=== PATIENT | female | born 1965 | race Caucasian/White ===

== ENCOUNTER → 2024-06-10 13:17 | Outpatient (CLI) | payer OTHER, SELFPAY ==
--- NOTE | 2024-06-10 13:18 | DI.MG.S_ITS ---
BILATERAL DIGITAL SCREENING MAMMOGRAM 3D/2D WITH CAD: 06/10/2024 CLINICAL: Routine screening. Family history of breast cancer. No prior exams were available for comparison. The breasts are extremely dense, which lowers the sensitivity of mammography (category d />75% glandular tissue). Current study was also evaluated with a Computer Aided Detection (CAD) system. There is an oval focal asymmetry in the right breast at 8 o'clock posterior depth. No other significant masses, calcifications, or other findings are seen in either breast. IMPRESSION: INCOMPLETE: NEED ADDITIONAL IMAGING EVALUATION The oval focal asymmetry in the right breast is indeterminate. Additional views with possible ultrasound are recommended. Based on Tyrer-Cuzick model (a risk assessment model), the patient's lifetime risk is 35.1% and her 10 year risk is 15.6%. If a patient has an elevated risk, a more comprehensive evaluation should be considered and/or a referral to a genetic counselor. The [place] [employer], [employer], and NCCN Guidelines advise the consideration of Breast MRI as an adjunct to screening mammography in patients whose Lifetime risk to develop breast cancer is 20% or higher. This exam was interpreted at Station ID: [id number]. NOTE: For mammograms, a report in lay terms will be sent to the patient. Approximately 15% of breast malignancies will not be visualized mammographically. In the management of a palpable breast mass, a negative mammogram must not discourage biopsy of a clinically suspicious lesion. Electronically Signed By: Romero jha/lucy:06/22/2024 15:47:52 letter sent: Additional Imaging Needed ACR BI-RADS Category 0: Incomplete: Need Additional Imaging Evaluation 3340F
== END ==
LOC: MAMMO 13:18
PROVIDERS: PCP Family Medicine; Referring Provider Family Medicine; Visit Provider Family Medicine
DX: Z12.31 Encounter for screening mammogram for malignant neoplasm of breast (principal); Z80.3 Family history of malignant neoplasm of breast; R92.343 Mammographic extreme density, bilateral breasts
CPT/HCPCS: 77063; 77067

== ENCOUNTER → 2024-06-22 09:56 | Outpatient (CLI) | payer OTHER, SELFPAY | PROVIDERS: PCP Family Medicine; Referring Provider Family Medicine; Visit Provider Family Medicine | DX: Z13.79 Encounter for other screening for genetic and chromosomal anomalies (principal); Z84.81 Family history of carrier of genetic disease | CPT/HCPCS: 36415 ==

== ENCOUNTER → 2024-06-25 11:19 | Outpatient (CLI) | payer OTHER, SELFPAY | PROVIDERS: PCP Family Medicine; Referring Provider Family Medicine; Visit Provider Family Medicine | DX: Z13.79 Encounter for other screening for genetic and chromosomal anomalies (principal); Z84.81 Family history of carrier of genetic disease | CPT/HCPCS: 36415 ==

== ENCOUNTER → 2024-07-21 12:09 | Outpatient (CLI) | payer OTHER, SELFPAY ==
--- NOTE | 2024-07-21 12:10 | DI.US.S_ITS ---
LIMITED ULTRASOUND OF RIGHT BREAST AND AXILLA: 07/21/2024 CLINICAL: Patient returns today to evaluate a focal asymmetry in the right breast. Comparison is made to exams dated: 07/21/2024 mammogram and 06/10/2024 mammogram - [facility]. Color flow and real-time ultrasound of the right breast 8-9 o'clock, and axilla regions were performed. Fair scale images of the real-time examination were reviewed. There is a 1 cm x 0.7 cm x 0.9 cm irregular mass in the right breast at 9 o'clock posterior depth 9 cm from the nipple. This irregular mass is hypoechoic with posterior acoustic shadowing. This correlates with mammography findings. Color flow imaging demonstrates that there is an adjacent vascularity. No significant abnormalities were seen sonographically in the right axilla. IMPRESSION: SUSPICIOUS The 1 cm x 0.7 cm x 0.9 cm irregular mass in the right breast is suspicious of malignancy. An ultrasound guided biopsy is recommended. No sonographic abnormalities identified in the axilla. No axillary adenopathy. Findings and recommendations were discussed with the patient by Dr. Lechuga during today's examination. This exam was interpreted at Station ID: [id number]. Electronically Signed By: Tuan Peralta M.D. aty/:07/21/2024 13:11:08 letter sent: Biopsy Required ACR BI-RADS Category 4: Suspicious
--- NOTE | 2024-07-21 12:10 | DI.MG.S_ITS ---
UNILATERAL RIGHT DIGITAL DIAGNOSTIC MAMMOGRAM 3D/2D WITH ADDITIONAL VIEWS: 07/21/2024 CLINICAL: Additional evaluation requested from prior study. Comparison is made [facility]. The breasts are extremely dense, which lowers the sensitivity of mammography (category d />75% glandular tissue). There is a 1 cm oval equal density focal asymmetry with an obscured margin in the right breast at 7 o'clock posterior depth. This is seen in additional views. No other significant masses or calcifications are seen in the breast. IMPRESSION: INCOMPLETE: NEED ADDITIONAL IMAGING EVALUATION The 1 cm oval equal density focal asymmetry in the right breast resembles a cyst, a solid mass, or a lymph node and is indeterminate. An ultrasound is recommended for further evaluation and is scheduled to immediately follow this examination. Based on Tyrer-Cuzick model (a risk assessment model), the patient's lifetime risk is 34.4% and her 10 year risk is 15.8%. If a patient has an elevated risk, a more comprehensive evaluation should be considered and/or a referral to a genetic counselor. The [place] [employer], [employer], and NCCN Guidelines advise the consideration of Breast MRI as an adjunct to screening mammography in patients whose Lifetime risk to develop breast cancer is 20% or higher. This exam was interpreted at Station ID: [id number]. NOTE: For mammograms, a report in lay terms will be sent to the patient. Approximately 15% of breast malignancies will not be visualized mammographically. In the management of a palpable breast mass, a negative mammogram must not discourage biopsy of a clinically suspicious lesion. Electronically Signed By: Tuan Peralta M.D. aty/:07/21/2024 12:48:27 letter sent: Additional Imaging Needed ACR BI-RADS Category 0: Incomplete: Need Additional Imaging Evaluation
== END ==
PROVIDERS: PCP Family Medicine; Referring Provider Family Medicine; Visit Provider Family Medicine
DX: R92.8 Other abnormal and inconclusive findings on diagnostic imaging of breast (principal); N63.15 Unspecified lump in the right breast, overlapping quadrants
CPT/HCPCS: 76642; 77065; G0279

== ENCOUNTER → 2024-08-11 | Outpatient (CLI) | payer OTHER, SELFPAY ==
--- NOTE | 2024-08-11 | DI.MG.S_ITS ---
UNILATERAL RIGHT DIGITAL DIAGNOSTIC MAMMOGRAM 3D/2D POST-PROCEDURE IMAGING FOR MARKER PLACEMENT: 08/11/2024 CLINICAL: Post right breast ultrasound biopsy, clip placement imaging. Comparison is made to exams dated: 07/21/2024 ultrasound, 07/21/2024 mammogram, and 06/10/2024 mammogram - [facility]. The breasts are extremely dense, which lowers the sensitivity of mammography (category d />75% glandular tissue). There is a marker clip in the appropriate position in the right breast middle depth central to the nipple seen on the craniocaudal view only. This marker clip placement is at the biopsy site. IMPRESSION: POST PROCEDURE MAMMOGRAM FOR MARKER PLACEMENT There was a successful marker clip placement in the right breast middle depth central to the nipple seen on the craniocaudal view only. Based on Tyrer-Cuzick model (a risk assessment model), the patient's lifetime risk is 34.4% and her 10 year risk is 15.8%. If a patient has an elevated risk, a more comprehensive evaluation should be considered and/or a referral to a genetic counselor. The [place] [employer], [employer], and NCCN Guidelines advise the consideration of Breast MRI as an adjunct to screening mammography in patients whose Lifetime risk to develop breast cancer is 20% or higher. This exam was interpreted at Station ID: [id number]. NOTE: For mammograms, a report in lay terms will be sent to the patient. Approximately 15% of breast malignancies will not be visualized mammographically. In the management of a palpable breast mass, a negative mammogram must not discourage biopsy of a clinically suspicious lesion. Electronically Signed By: Noelle jimenez/lucy:08/12/2024 21:45:09 ACR BI-RADS Category Post-Procedure Mammogram for Marker Placement
--- NOTE | 2024-08-11 | PATH_ITS ---
[facility] Accession Number: [id number] No. of containers..01 Tissue . 01 Material submitted: . breast - RIGHT BREAST MASS 9:00 9 CMFN . 01 Diagnosis: RIGHT BREAST MASS AT 9 O'CLOCK 9 CM FROM NIPPLE, NEEDLE CORE BIOPSY: Fibroepithelial lesion, consistent with fibroadenoma. ROBERT 08/13/2024 1635 Local . 01 Comment: This case was also reviewed by Dr. Duncan, who agrees with the interpretation. . There is no evidence of stromal overgrowth, epithelial atypia, or malignancy. . 01 Electronically signed: . Lynne Aguero MD, Pathologist NPI- [id number] . 01 Gross description: . Received is one formalin-filled container labeled with the patient's name labeled right breast 9 o'clock 9 cm FN. The specimen is received with plastic filter in container, sample loose in container, and consists of multiple fragments of [place] soft tissue and clotted blood which range in size from 0.1 x 0.1 x 0.1 cm to 1.2 x 0.2 x 0.2 cm. All fragments are totally submitted in cassette A1. . Possible collection date and time per requisition 08/11/2024 at 0952 hours. Total fixation time approximately 15 hours. (DC:[id number]) /ROBERT 08/12/2024 0604 Local . 01 Microscopic: . Immunostains for p63 and myosin are performed on block A1, to evaluate the cells of interest, and are positive in the regions of interest, mitigating against an invasive tumor. The control stains show appropriate reactivity. . . * This test was developed and the performance characteristics were validated by [employer]. It has not been cleared or approved by the U.S. Food and Drug Administration. . 01 Pathologist provided ICD-10: Z84.81, N63.10, R92.8 . 01 CPT . 774107, D14794, P46191 Specimen Comment: A courtesy copy of this report has been sent to [facility] Performed at: [address] [address], [place], [place] [id number] MD Jareth Eden MD Phone: [phone]
--- NOTE | 2024-08-11 08:49 | DI.US.S_ITS ---
ULTRASOUND GUIDED BIOPSY RIGHT BREAST USING VACUUM DEVICE WITH MARKING DEVICE INSERTED: 08/11/2024 CLINICAL: Right breast mass. PATIENT CONSENT: Risks (minor bleeding, infection, vasovagal reaction and repeat procedure), benefits and alternatives were explained to the patient and written informed consent was obtained. Correlation is made to exams dated: 08/11/2024 mammogram, 07/21/2024 ultrasound, 07/21/2024 mammogram, and 06/10/2024 mammogram - [facility]. An ultrasound guided biopsy using real-time ultrasound was performed for the mass located in the right breast at 9 o'clock middle depth. The skin was prepped in the usual manner. Local anesthetic was administered to the access site. A small incision was made in the breast. The abnormality was approached from the lateral aspect. A biopsy needle was placed adjacent to the abnormality under ultrasound guidance. Once the needle was documented to be in the correct location, a specimen was obtained using the Mammotome biopsy system. The patient received additional topical anesthetic during the procedure. A titanium clip was inserted into the biopsy cavity. A sterile dressing was applied to the access site. The specimen was sent to the laboratory for pathological analysis. IMPRESSION: ULTRASOUND GUIDED BIOPSY BENIGN Ultrasound guided biopsy of the mass in the right breast at 9 o'clock middle depth was successful. Pathology indicates benign fibroadenoma (FA). Pathology results are concordant with imaging findings. Return to annual mammogram screening schedule is recommended. Results and recommendations will be communicated to the ordering provider's office. This exam was interpreted at Station ID: [id number]. Noelle Balderas M.D. elier,krg/:08/16/2024 16:43:18
== END ==
PROVIDERS: PCP Family Medicine; Referring Provider Family Medicine; Visit Provider Family Medicine
DX: D24.1 Benign neoplasm of right breast (principal); R92.343 Mammographic extreme density, bilateral breasts; Z84.81 Family history of carrier of genetic disease
CPT/HCPCS: 19083; 77065

== ENCOUNTER → 2025-08-20 12:59 | Outpatient (CLI) | payer OTHER, SELFPAY ==
--- NOTE | 2025-08-20 12:59 | DI.MG.S_ITS ---
MM screening mammo BI: 08/20/2025. BI-RADS: 2 CLINICAL: 60-year old female for bilateral screening mammogram. Tyrer-Cuzick lifetime risk of 27.0%. Current reported family history of breast cancer: mother. The patient had prior bilateral breast biopsies. PRIOR EXAMS 08/11/2024, 07/21/2024, 06/10/2024. MAMMOGRAPHY TECHNIQUE: 2D and 3D (tomosynthesis) digital mammographic views obtained, with additional images as needed for full coverage. Current study was also evaluated with a Computer Aided Detection (CAD) system. DENSITY D. The breasts are extremely dense, which lowers the sensitivity of mammography. MAMMOGRAPHY FINDINGS Right: Biopsy marker present on the right. There are no suspicious masses, calcifications, or other findings in the breast. No significant change from comparison. Left: No suspicious mass, asymmetry, microcalcification, or other abnormality seen. No significant change from comparison. IMPRESSION: Right * No evidence of malignancy with benign findings. Left * No evidence of malignancy. RECOMMENDATIONS Bilateral * According to the Tyrer-Cuzick Risk Assessment Model, based on the information provided your patient has a greater than 20% lifetime risk for developing breast cancer. Consider supplemental screening with breast MRI and participation in a high risk screening program. * Annual screening mammography. OVERALL ASSESSMENT CATEGORY BI-RADS-2: Benign. The [employer] recommends annual screening mammography beginning at age 40 for women with average risk of breast cancer. ELECTRONICALLY SIGNED: Ashley Balderas M.D. on 08/22/2025 at 11:35:52 AM PT Interpreting Station ID: [id number]
== END ==
PROVIDERS: PCP Family Medicine; Referring Provider Family Medicine; Visit Provider Family Medicine
DX: Z12.31 Encounter for screening mammogram for malignant neoplasm of breast (principal); R92.343 Mammographic extreme density, bilateral breasts; Z80.3 Family history of malignant neoplasm of breast
CPT/HCPCS: 77063; 77067